=== PATIENT | female | born 1995 | race Hispanic/Latino ===

== ENCOUNTER 2017-12-19 14:27 | Emergency (ER) | payer OTHER ==
[2017-12-19] MEDS ORDERED: LIDOCAINE 1% MPF 5 ML VIAL ONE (14:52)
--- NOTE | 2017-12-19 15:33 | ER ---
Nurse's Notes [facility] Name: Christina Campos Age: 22 yrs Sex: Female : 1995 Arrival Date: 12/19/2017 Time: 14:28 Bed 9 Private MD: Diagnosis: Laceration without foreign body of right middle finger without damage to nail Presentation: 12/19 15:01 Presenting complaint: Patient states: I cut myself cleaning a coffee pot. Transition of tw2 care: patient was not received from another setting of care. Complicating Factors: There are no complicating factors for this patient. Onset of symptoms was December 19, 2017. Initial Sepsis Screen: Does the patient meet any 2 criteria? No. Patient's initial sepsis screen is negative. Does the patient have a suspected source of infection? No. Patient's initial sepsis screen is negative. Care prior to arrival: None. 15:01 Method Of Arrival: Ambulatory tw2 15:01 Acuity: DELFINO 4 tw2 Triage Assessment: 15:02 General: Appears in no apparent distress. Behavior is calm, cooperative, appropriate tw2 for age. Injury Description: Laceration sustained to dorsal aspect of proximal phalanx of right middle finger is bleeding a small amount. 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 tw2 Historical: - Allergies: 15:52 No Known Drug Allergies; tw2 - Home Meds: 15:52 None [Active]; tw2 - PMHx: 15:52 None; tw2 - PSHx: 15:52 None; tw2 - Immunization history:: Adult Immunizations up to date. - Social history:: Smoking status: Patient/guardian denies using tobacco. Screenin:01 Abuse screen: Denies threats or abuse. Nutritional screening: No deficits noted. tw2 Tuberculosis screening: No symptoms or risk factors identified. Fall Risk None identified. Assessment: 15:02 General: Appears in no apparent distress. well groomed. Cardiovascular: Denies chest tw2 pain, shortness of breath, Capillary refill < 3 seconds Patient's skin is warm and dry. Respiratory: Airway is patent Respiratory effort is even, unlabored, Respiratory pattern is regular, symmetrical. 15:40 Reassessment: Patient appears in no apparent distress at this time. No changes from tw2 previously documented assessment. Patient and/or family updated on plan of care and expected duration. Pain level reassessed. Patient is alert, oriented x 3, equal unlabored respirations, skin warm/dry/pink. General: Appears in no apparent distress. well groomed. Pain: Complains of pain in dorsal aspect of proximal phalanx of right middle finger. Cardiovascular: Denies chest pain, shortness of breath, Capillary refill < 3 seconds Patient's skin is warm and dry. Respiratory: Airway is patent Respiratory effort is even, unlabored, Respiratory pattern is regular, symmetrical. Musculoskeletal: Range of motion: intact in all extremities. Injury Description: Laceration is clean, 0.5 to 2.5 cm long, bleeding moderately. Vital Signs: 15:01 BP 126 / 91; Pulse 66; Resp 18; Temp 98.6(TE); Pulse Ox 100% on R/A; Weight 65.77 kg; tw2 Height 5 ft. 2 in. (157.48 cm); Pain 9/10; 15:40 BP 119 / 86; Pulse 65; Resp 17; Pulse Ox 100% on R/A; Pain 4/10; tw2 15:01 Body Mass Index 26.52 (65.77 kg, 157.48 cm) tw2 ED Course: 14:28 Patient arrived in ED. as 14:40 Lianne Wisdom FNP-C is PSYCHIATRICP. kb 14:40 Zay Schaefer MD is Attending Physician. kb 15:00 Emmy Gutiérrez, NATANAEL is Primary Nurse. tw2 15:01 Triage completed. tw2 15:01 Bed in low position. Call light in reach. Adult w/ patient. Pulse ox on. NIBP on. tw2 15:01 Arm band placed on. tw2 15:02 No provider procedures requiring assistance completed. Patient did not have IV access tw2 during this emergency room visit. 15:40 Dressings: non-adherent dressing x 1 dorsal aspect of proximal phalanx of right middle tw2 finger 4X4s X 1; dorsal aspect of proximal phalanx of right middle finger with coban, pt tolerated well. Administered Medications: 15:20 Drug: Lidocaine (1 %) 1 vials {Note: per AKIRA Hough.} Volume: 5 ml; Route: tw2 Infiltration; 15:40 Follow up: Response: No adverse reaction tw2 Outcome: 15:32 Discharge ordered by . kb 15:41 Patient left the ED. tw2 15:41 Discharged to home ambulatory. tw2 15:41 Condition: stable 15:41 Discharge instructions given to patient, Instructed on discharge instructions, follow up and referral plans. wound care, Demonstrated understanding of wound care. Signatures: Lianne Wisdom, WWE WRESTLER-C WWE WRESTLER-Therese Corrales Tara RN RN tw2
--- NOTE | 2017-12-19 15:33 | EDPHYS ---
Physician Documentation [facility] Name: Christina Campos Age: 22 yrs Sex: Female : 1995 Arrival Date: 12/19/2017 Time: 14:28 Bed 9 Private MD: ED Physician Zay Schaefer HPI: 12/19 15:34 This 22 yrs old Female presents to ER via Ambulatory with complaints of kb Laceration - Finger. 15:34 The patient has a laceration related to: cleaning coffee pot and it broke occurred at kb work, and there are no complicating factors. The injury was accidental. The laceration(s) is(are) located on the dorsal aspect of proximal phalanx of right middle finger. Onset: The symptoms/episode began/occurred just prior to arrival. Associated signs and symptoms: The patient has no apparent associated signs or symptoms. The patient has not experienced similar symptoms in the past. The patient has not recently seen a physician. 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 tw2 Historical: - Allergies: 15:52 No Known Drug Allergies; tw2 - Home Meds: 15:52 None [Active]; tw2 - PMHx: 15:52 None; tw2 - PSHx: 15:52 None; tw2 - Immunization history:: Adult Immunizations up to date. - Social history:: Smoking status: Patient/guardian denies using tobacco. ROS: 15:33 Constitutional: Negative for fever, chills, and weight loss, Cardiovascular: Negative kb for chest pain, palpitations, and edema, Respiratory: Negative for shortness of breath, cough, wheezing, and pleuritic chest pain, Abdomen/GI: Negative for abdominal pain, nausea, vomiting, diarrhea, and constipation, Neuro: Negative for headache, weakness, numbness, tingling, and seizure. 15:33 Skin: Positive for laceration(s), of the dorsal aspect of proximal phalanx of right middle finger. Exam: 15:33 Constitutional: This is a well developed, well nourished patient who is awake, alert, kb and in no acute distress. Head/Face: Normocephalic, atraumatic. Chest/axilla: Normal chest wall appearance and motion. Nontender with no deformity. No lesions are appreciated. Cardiovascular: Regular rate and rhythm with a normal S1 and S2. No gallops, murmurs, or rubs. Normal PMI, no JVD. No pulse deficits. Respiratory: Lungs have equal breath sounds bilaterally, clear to auscultation and percussion. No rales, rhonchi or wheezes noted. No increased work of breathing, no retractions or nasal flaring. Abdomen/GI: Soft, non-tender, with normal bowel sounds. No distension or tympany. No guarding or rebound. No evidence of tenderness throughout. MS/ Extremity: Pulses equal, no cyanosis. Neurovascular intact. Full, normal range of motion. Neuro: Awake and alert, GCS 15, oriented to person, place, time, and situation. Cranial nerves II-XII grossly intact. Motor strength 5/5 in all extremities. Sensory grossly intact. Cerebellar exam normal. Normal gait. 15:33 Skin: injury, laceration(s), the wound is approximately 3 cm(s), of the dorsal aspect of proximal phalanx of right middle finger, that can be described as clean, no foreign body, linear, without bleeding. Vital Signs: 15:01 BP 126 / 91; Pulse 66; Resp 18; Temp 98.6(TE); Pulse Ox 100% on R/A; Weight 65.77 kg; tw2 Height 5 ft. 2 in. (157.48 cm); Pain 9/10; 15:40 BP 119 / 86; Pulse 65; Resp 17; Pulse Ox 100% on R/A; Pain 4/10; tw2 15:01 Body Mass Index 26.52 (65.77 kg, 157.48 cm) tw2 Laceration: 15:31 Wound Repair of 3cm ( 1.2in ) subcutaneous laceration to dorsal aspect of proximal kb phalanx of right middle finger. Linear shaped.. Distal neuro/vascular/tendon intact. Anesthesia: Local anesthetic administered with 3 mls of 1% lidocaine. Wound prep: Extensive cleansing with hibiclenz by me, Wound irrigation with saline by me. Skin closed with 5 5-0 Prolene using interrupted sutures and sterile technique. Dressed with Neosporin. Patient tolerated well. MDM: 14:40 Patient medically screened. kb 15:31 Data reviewed: vital signs, nurses notes. Data interpreted: Pulse oximetry: on room air kb is 100 %. Interpretation: normal. Counseling: I had a detailed discussion with the patient and/or guardian regarding: the historical points, exam findings, and any diagnostic results supporting the discharge/admit diagnosis, the need for outpatient follow up, a family practitioner, to return to the emergency department if symptoms worsen or persist or if there are any questions or concerns that arise at home. 12/19 14:48 Order name: Prolene, Sutures; Complete Time: 15:00 kb 12/19 14:48 Order name: Dressing - Wound; Complete Time: 15:39 kb 12/19 14:48 Order name: Gloves, Sterile; Complete Time: 15:00 kb 12/19 14:48 Order name: Setup Suture Tray; Complete Time: 15:00 kb Administered Medications: 15:20 Drug: Lidocaine (1 %) 1 vials {Note: per AKIRA Hough.} Volume: 5 ml; Route: tw2 Infiltration; 15:40 Follow up: Response: No adverse reaction tw2 Disposition: 16:41 Co-signature as Attending Physician, Zay Schaefer MD. rn Disposition: 12/19/17 15:32 Discharged to Home. Impression: Laceration without foreign body of right middle finger without damage to nail. - Condition is Stable. - Discharge Instructions: Laceration Care, Adult, [id number]. - Work release form, Medication Reconciliation Form, Thank You Letter, Antibiotic Education, Prescription Opioid Use form. - Follow up: Emergency Department; When: As needed; Reason: Worsening of condition. Follow up: Private Physician; When: 2 - 3 days; Reason: Recheck today's complaints, Continuance of care, Re-evaluation by your physician. - Notes: Keep clean and dry Have sutures removed in 10-14 days Signatures: Lianne Wisdom, AKIRA-C [employer] CLERK-CkZay Romano MD MD rn Emmy Gutiérrez RN RN tw2
[2017-12-19 15:58] VITALS: BP 119/86; O2SAT 100
[2017-12-19 15:59] VITALS: TEMP 98.6
== END 2017-12-19 15:41 | disposition home or self-care (01) ==
LOC: ER 14:27
PROC: 0JQJ0ZZ Repair Right Hand Subcutaneous Tissue and Fascia, Open Approach (ICD-10-PCS; principal; 2017-12-19)
DX: S61.212A Laceration without foreign body of right middle finger without damage to nail, initial encounter (principal); W25.XXXA Contact with sharp glass, initial encounter; Y93.G1 Activity, food preparation and clean up; Y92.89 Other specified places as the place of occurrence of the external cause; Y99.0 Civilian activity done for income or pay
CPT/HCPCS: 99283

== ENCOUNTER 2020-01-28 15:19 | Emergency (ER) | payer OTHER ==
[2020-01-28] MEDS ORDERED: ONDANSETRON 4 MG/2 ML VIAL ONE (17:57)
[2020-01-28 18:18] LABS: Absolute Lymphocytes (CBC) 2.7 K/uL (0.7-4.9); Basophils % 0.9 % (0-1.3); Lymphocytes % 27.4 % (15.3-44.8); MPV 8.6 fL (7.6-11.3); RBC Red Blood Cell Count 4.78 M/uL (3.86-4.86)
[2020-01-28 18:23] LABS: ALT/SGPT 25 U/L (12-78); AST/SGOT 15 U/L (15-37); Albumin 4.3 g/dL (3.4-5.0); Alkaline Phosphatase 71 U/L (45-117); BUN Blood Urea Nitrogen 12 mg/dL (7-18); Bicarbonate 28 mmol/L (21-32); Bilirubin Direct < 0.1 mg/dL (0-0.2); Bilirubin Total 0.2 mg/dL (0.2-1.0); Glucose Level 94 mg/dL (74-106); Lipase 133 U/L (73-393); Potassium 3.9 mmol/L (3.5-5.1); Protein, Total 8.2 g/dL (6.4-8.2); Sodium Level 141 mmol/L (136-145)
--- NOTE | 2020-01-28 19:08 | RAD REPORT ---
EXAM DESCRIPTION: CT - Abdomen Pelvis W Contrast - 01/28/2020 6:53 pm CLINICAL HISTORY: abdominal pain, vomiting COMPARISON: No comparisons TECHNIQUE: Biphasic, helical CT imaging of the abdomen and pelvis was performed following 100 ml non -ionic IV contrast. Oral contrast was given. All CT scans are performed using dose optimization technique as appropriate and may include automated exposure control or mA/KV adjustment according to patient size. FINDINGS: No suspicious findings in the lung bases. The liver, spleen, and pancreas show no suspicious findings. Gallbladder and biliary tree are also wi thout suspicious finding. Symmetric renal function is seen with no hydronephrosis or suspicious renal mass. No pyelonephritis o r acute parenchymal process. No bladder abnormalities. No adrenal abnormalities. Uterus and left ovary are unremarkable. Right ovary contains a 12 millimeter cyst. No dilated bowel loops or bowel wall thickening. No free air, free fluid or inflammatory stranding. No hernia, mass or bulky lymphadenopathy. No suspicious bony findings. IMPRESSION: Contrast enhanced CT abdomen and pelvis showing no significant or suspicious finding.
[2020-01-28] MEDS ORDERED: NA CHLORIDE 0.9% 1,000 ML ONE (20:07)
[2020-01-28] MEDS ORDERED: PROMETHAZINE INJ 25 MG/ML AMP ONE (20:07)
[2020-01-28 20:41] LABS: Urine Blood NEGATIVE (NEG); Urine Glucose NEGATIVE (NEG); Urine Protein NEGATIVE (NEG); Urine pH 8.5 (5.0-7.0)
--- NOTE | 2020-01-28 21:19 | EDPHYS ---
Physician Documentation [facility] Name: Christina Campos Age: 25 yrs Sex: Female : 1995 Arrival Date: 01/28/2020 Time: 15:21 Bed 18 Private MD: ED Physician Santos Gomez HPI: 01/27 17:37 This 25 yrs old Female presents to ER via Ambulatory with complaints of jmm Nausea/Vomiting/Diarrhea. 17:37 The patient presents to the emergency department with nausea, vomiting, abdominal pain. jmm Onset: The symptoms/episode began/occurred last night. Possible causes: unknown. The symptoms are aggravated by food , The symptoms are alleviated by nothing. Associated signs and symptoms: Pertinent positives: abdominal pain. This is a 25 year old female with no chronic medical conditions that presents to the ED with complaints of abdominal pain, vomiting beginning last night. Patient also complains of chills. Denies diarrhea. . 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 - Social history:: Smoking status: Patient denies any tobacco usage or history of. ROS: 17:37 Constitutional: Negative for fever, chills, and weight loss, Cardiovascular: Negative jmm for chest pain, palpitations, and edema, Respiratory: Negative for shortness of breath, cough, wheezing, and pleuritic chest pain. 17:37 Abdomen/GI: Positive for vomiting, diarrhea. 17:37 All other systems are negative. Exam: 17:37 Constitutional: This is a well developed, well nourished patient who is awake, alert, jmm and in no acute distress. Head/Face: atraumatic. Eyes: EOMI, no conjunctival erythema appreciated ENT: Moist Mucus Membranes Neck: Trachea midline, Supple Chest/axilla: Normal chest wall appearance and motion. Cardiovascular: Regular rate and rhythm. No edema appreciated Respiratory: Normal respirations, no respiratory distress appreciated 17:37 Back: Normal ROM Skin: General appearance color normal MS/ Extremity: Moves all extremities, no obvious deformities appreciated, no edema noted to the lower extremities Neuro: Awake and alert, normal gait Psych: Behavior is normal, Mood is normal, Patient is cooperative and pleasant 17:37 Abdomen/GI: Inspection: abdomen appears normal, Bowel sounds: normal, Palpation: soft, mild abdominal tenderness, in all quadrants. Vital Signs: 15:28 BP 128 / 87; Pulse 84; Resp 16; Temp 98.1; Pulse Ox 98% ; Weight 72.57 kg; Height 5 ft. sv 2 in. (157.48 cm); Pain 0/10; 18:30 BP 132 / 71; Pulse 75; Resp 16 S; Pulse Ox 100% on R/A; ca1 20:00 BP 130 / 75; Pulse 70; Resp 18; Pulse Ox 99% on R/A; wh 21:30 BP 137 / 57; Pulse 68; Resp 18; Pulse Ox 100% on R/A; wh 15:28 Body Mass Index 29.26 (72.57 kg, 157.48 cm) sv MDM: 17:30 Patient medically screened. [facility] 21:15 Data reviewed: vital signs, nurses notes, lab test result(s), radiologic studies, CT cp scan. 21:15 Differential diagnosis: gastritis, cholecystitis, pancreatitis, viral gastroenteritis, cp gastroenteritis. Counseling: I had a detailed discussion with the patient and/or guardian regarding: the historical points, exam findings, and any diagnostic results supporting the discharge/admit diagnosis, lab results, radiology results, to return to the emergency department if symptoms worsen or persist or if there are any questions or concerns that arise at home. Response to treatment: the patient's symptoms have markedly improved after treatment. ED course: VSS. Nausea improved and vomiting resolved. Patient observed tolerating po fluids. Will discharge to home for continued monitoring. 01/27 17:30 Order name: Basic Metabolic Panel; Complete Time: 19:25 [facility] 01/27 19:25 Interpretation: Normal except: CL 108. cp 01/27 17:30 Order name: CBC with Diff; Complete Time: 19:25 [facility] 01/27 17:30 Order name: Hepatic Function; Complete Time: 19:25 [facility] 01/27 17:30 Order name: Lipase; Complete Time: 19:25 [facility] 01/27 18:08 Order name: Urine Dipstick--Ancillary (enter results); Complete Time: 20:58 bd 01/27 20:59 Interpretation: Normal except: UPH 8.5; U NIT POSITIVE. cp 01/27 18:08 Order name: Urine --Ancillary (enter results); Complete Time: 20:58 bd 01/27 17:30 Order name: IV Saline Lock; Complete Time: 17:59 [facility] 01/27 17:37 Order name: CT Abd/Pelvis - IV Contrast Only; Complete Time: 19:25 [facility] 01/27 20:59 Order name: Urine Microscopic Only cp 01/27 17:30 Order name: Labs collected and sent; Complete Time: 17:59 [facility] 01/27 17:30 Order name: Urine Dipstick-Ancillary (obtain specimen); Complete Time: 17:59 [facility] 01/27 17:30 Order name: Urine Test (obtain specimen); Complete Time: 17:59 [facility] 01/27 19:26 Order name: PO challenge; Complete Time: 19:48 cp 01/27 20:25 Order name: PO challenge; Complete Time: 20:48 cp Administered Medications: 17:56 Drug: Zofran (Ondansetron) 4 mg Route: IVP; Site: right antecubital; ca1 20:48 Follow up: Response: No adverse reaction; Nausea unchanged 19:59 CANCELLED (Physician Discretion): Phenergan 12.5 mg IVP once 20:04 Drug: Phenergan 25 mg Route: IVP; Site: right antecubital; 21:17 Follow up: Response: No adverse reaction; Nausea is decreased 20:05 Drug: NS 0.9% 1000 ml Route: IV; Rate: 1 bolus; Site: right antecubital; 21:17 Follow up: Response: No adverse reaction; IV Status: Completed infusion 21:16 Drug: Rocephin 1 grams Route: IV; Rate: calculated rate; Site: right antecubital; 21:45 Follow up: Response: No adverse reaction; IV Status: Completed infusion Disposition: 01/28 09:07 Co-signature as Attending Physician, Santos Gomez MD I agree with the assessment and kdr plan of care. Disposition: 01/28/20 21:19 Discharged to Home. Impression: Nausea and vomiting, Urinary tract infection, site not specified. - Condition is Stable. - Discharge Instructions: Nausea and Vomiting, Adult, Urinary Tract Infection, Adult. - Prescriptions for Bactrim DS 800- 160 mg Oral Tablet - take 1 tablet by ORAL route every 12 hours for 7 days; 14 tablet. Phenergan 25 mg Rectal Suppository - insert 1 suppository by RECTAL route every 6 hours As needed; 12 suppository. promethazine 25 mg Oral Tablet - take 1 tablet by ORAL route every 6 hours As needed; 20 tablet. - Medication Reconciliation Form, Thank You Letter, Antibiotic Education, Prescription Opioid Use, Work release form form. - Follow up: Private Physician; When: 1 - 2 days; Reason: Recheck today's complaints. - Problem is new. - Symptoms have improved. Signatures: Dispatcher [employer] EDVanda Vizcarra RN RN Tom Carreon RN RN sg Santos Gomez MD MD kdr Mickail, Joel, PA PA jmm Page, Corey, PA PA cp Habalo, Winsy Maren Harris RN RN ca1 Corrections: (The following items were deleted from the chart) 01/27 19:59 19:57 Phenergan 12.5 mg IVP [address] ordered. [facility] 21:44 21:19 01/28/2020 21:19 Discharged to Home. Impression: Nausea and vomiting; Urinary wh tract infection, site not specified. Condition is Stable. Forms are Medication Reconciliation Form, Thank You Letter, Antibiotic Education, Prescription Opioid Use. Follow up: Private Physician; When: 1 - 2 days; Reason: Recheck today's complaints. Problem is new. Symptoms have improved. cp
--- NOTE | 2020-01-28 21:19 | ER ---
Nurse's Notes [facility] Name: Christina Campos Age: 25 yrs Sex: Female : 1995 Arrival Date: 01/28/2020 Time: 15:21 Bed 18 Private MD: Diagnosis: Nausea and vomiting;Urinary tract infection, site not specified Presentation: 01/27 15:27 Chief complaint: Patient states: n/v/d started today. Denies abd pain. Risk Assessment: sv Do you want to hurt yourself or someone else? Patient reports no desire to harm self or others. Onset of symptoms was January 28, 2020. 15:27 Method Of Arrival: Ambulatory sv 15:27 Acuity: DELFINO 3 sv 15:28 Coronavirus screen: Proceed with normal triage. Patient denies a cough. Patient denies sv shortness of breath or difficulty breathing. Patient reports a measured and/or subjective temperature greater than 100.4F. Patient denies travel on a cruise ship or to a country the [facility] currently lists as an affected area. Patient denies contact with known and/or suspected case of COVID-19. Ebola Screen: No symptoms or risks identified at this time. Initial Sepsis Screen: Does the patient meet any 2 criteria? No. Patient's initial sepsis screen is negative. Does the patient have a suspected source of infection? No. Patient's initial sepsis screen is negative. Triage Assessment: 15:30 General: Appears in no apparent distress. comfortable, Behavior is calm, cooperative, sv appropriate for age. Pain: Denies pain. Neuro: Level of Consciousness is awake, alert, obeys commands, Oriented to person, place, time, situation, Gait is steady. Respiratory: Respiratory effort is even, unlabored. GI: Reports diarrhea, nausea, vomiting. 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 - Social history:: Smoking status: Patient denies any tobacco usage or history of. Screenin:35 Abuse screen: Denies threats or abuse. Denies injuries from another. Nutritional ca1 screening: No deficits noted. Tuberculosis screening: No symptoms or risk factors identified. Fall Risk IV access (20 points). Assessment: 17:35 General: Appears in no apparent distress. comfortable, Behavior is calm, cooperative, ca1 appropriate for age. Pain: Complains of pain in epigastric area Pain currently is 5 out of 10 on a pain scale. Neuro: Level of Consciousness is awake, alert, obeys commands, Oriented to person, place, time, situation. Cardiovascular: Heart tones S1 S2 present Capillary refill < 3 seconds Patient's skin is warm and dry. Respiratory: Airway is patent Respiratory effort is even, unlabored, Respiratory pattern is regular, symmetrical, Breath sounds are clear bilaterally. GI: Abdomen is round non-distended, Bowel sounds present X 4 quads. Abd is soft and non tender X 4 quads. Reports diarrhea, nausea, vomiting, since this morning. : Urine is cloudy. EENT: No signs and/or symptoms were reported regarding the EENT system. Derm: Skin is intact, is healthy with good turgor, Skin is pink, warm \T\ dry. Musculoskeletal: Circulation, motion, and sensation intact. Capillary refill < 3 seconds. 18:30 Reassessment: Patient appears in no apparent distress at this time. Patient and/or ca1 family updated on plan of care and expected duration. Pain level reassessed. Patient is alert, oriented x 3, equal unlabored respirations, skin warm/dry/pink. 19:15 Reassessment: Patient appears in no apparent distress at this time. Patient and/or wh family updated on plan of care and expected duration. Pain level reassessed. Patient is alert, oriented x 3, equal unlabored respirations, skin warm/dry/pink. 20:20 Reassessment: Patient appears in no apparent distress at this time. No changes from previously documented assessment. Patient and/or family updated on plan of care and expected duration. Pain level reassessed. Patient is alert, oriented x 3, equal unlabored respirations, skin warm/dry/pink. 21:30 Reassessment: Patient appears in no apparent distress at this time. No changes from previously documented assessment. Patient and/or family updated on plan of care and expected duration. Pain level reassessed. Patient is alert, oriented x 3, equal unlabored respirations, skin warm/dry/pink. Patient states feeling better. Patient states symptoms have improved. Vital Signs: 15:28 BP 128 / 87; Pulse 84; Resp 16; Temp 98.1; Pulse Ox 98% ; Weight 72.57 kg; Height 5 ft. sv 2 in. (157.48 cm); Pain 0/10; 18:30 BP 132 / 71; Pulse 75; Resp 16 S; Pulse Ox 100% on R/A; ca1 20:00 BP 130 / 75; Pulse 70; Resp 18; Pulse Ox 99% on R/A; wh 21:30 BP 137 / 57; Pulse 68; Resp 18; Pulse Ox 100% on R/A; wh 15:28 Body Mass Index 29.26 (72.57 kg, 157.48 cm) sv ED Course: 15:21 Patient arrived in ED. ag5 15:28 Triage completed. sv 15:30 Arm band placed on. sv 17:22 Shamir Phillips PA is PHCP. [facility] 17:22 Santos Gomez MD is Attending Physician. [facility] 17:31 Maren Harris RN is Primary Nurse. ca1 17:35 Patient has correct armband on for positive identification. Placed in gown. Bed in low ca1 position. Call light in reach. Side rails up X 1. Pulse ox on. NIBP on. Warm blanket given. 17:39 Radiology exam delayed due to test not completed at this time. vm2 17:55 No provider procedures requiring assistance completed. Initial lab(s) drawn, by [facility], ca1 sent to lab. Urine collected: clean catch specimen, cloudy. Inserted saline lock: 20 gauge in right antecubital area, using aseptic technique. Blood collected. 18:01 PHCP role handed off by Shamir Phillips PA cp 18:01 Salvador Mccracken PA is PHCP. cp 18:53 CT Abd/Pelvis - IV Contrast Only In Process Unspecified. EDMS 19:09 Report given to NATANAEL Soto. ca1 21:44 IV discontinued, intact, bleeding controlled, No redness/swelling at site. wh Administered Medications: 17:56 Drug: Zofran (Ondansetron) 4 mg Route: IVP; Site: right antecubital; ca1 20:48 Follow up: Response: No adverse reaction; Nausea unchanged wh 19:59 CANCELLED (Physician Discretion): Phenergan 12.5 mg IVP once 20:04 Drug: Phenergan 25 mg Route: IVP; Site: right antecubital; wh 21:17 Follow up: Response: No adverse reaction; Nausea is decreased 20:05 Drug: NS 0.9% 1000 ml Route: IV; Rate: 1 bolus; Site: right antecubital; 21:17 Follow up: Response: No adverse reaction; IV Status: Completed infusion 21:16 Drug: Rocephin 1 grams Route: IV; Rate: calculated rate; Site: right antecubital; 21:45 Follow up: Response: No adverse reaction; IV Status: Completed infusion Outcome: 21:19 Discharge ordered by MD. cp 21:44 Discharged to home ambulatory. 21:44 Condition: stable 21:44 Discharge instructions given to patient, Instructed on discharge instructions, follow up and referral plans. medication usage, POC Demonstrated understanding of instructions, follow-up care, medications, POC Prescriptions given X 1. 21:44 Patient left the ED. Addendum: 02/01/2020 13:27 Addendum: Culture Results: Positive urine culture. Prescription called-in to pharmacy [facility]. Macrobid 100 mg PO BID x 10 days per [employer] WORKER [place], called in to [facility] as requested by pt. Signatures: Dispatcher [employer] Vanda Olsen RN RN sv Mickail, Joel, PA PA jmm Page, Corey, PA PA cp Baxter, Heather, RN RN hb McGuire, [facility] Charles Knowles Maren Harris RN RN [facility] Patrick Pfeiffer 5 Corrections: (The following items were deleted from the chart) 01/27 15:30 15:28 Pulse 84bpm; Resp 16bpm; Pulse Ox 98%; Temp 98.1F; 72.57 kg; Height 5 ft. 2 in.; sv BMI: 29.2; sv
[2020-01-28] MEDS ORDERED: CEFTRIAXONE/SWI 1gm 1 GM/10 ML SYR ONE (21:22)
[2020-01-28 22:01] LABS: Urine Amorphous Sediment 1+ /HPF (NONE SEEN); Urine Bacteria LOADED /HPF (<20); Urine Culture Reflex Order REFLEXED; Urine RBC <5 /HPF (NONE SEEN)
[2020-01-28 22:24] VITALS: TEMP 98.1
[2020-01-28 22:28] VITALS: BP 137/57; O2SAT 100
== END 2020-01-28 21:44 | disposition home or self-care (01) ==
LOC: ER 15:19
DX: N39.0 Urinary tract infection, site not specified (principal)
CPT/HCPCS: 96365; 96361; 87088; 85025; 87086; 80048; 36415; 81025; 82565; 80076; 87077; 87186; 83690; 74177; 96375; 99284; Q9967; J2550; J0696; J7030; J2405; 81003; 81015